=== PATIENT | male | born 1980 | race Caucasian/White ===

== ENCOUNTER 2017-04-04 12:46 | Day surgery (SDC) | payer OTHER ==
[~2017-04-04] VITALS: Ht 185.4 cm; Wt 102.5 kg
[~2017-04-04 12:46] MED LIST: CATAPRES0.1 MG PO; CRESTOR5 MG PO; LIPITOR20 MG PO; PRILOSEC10 MG PO; VITAMIN E400 UNIT PO; ZESTRIL5 MG PO
[2017-04-04 13:15] VITALS: BP 122/82
[2017-04-04 17:30] VITALS: BP 130/80
[2017-04-04 18:35] VITALS: BP 120/70
== END 2017-04-04 19:05 | disposition home or self-care (01) ==
LOC: SDC 12:46
DX: M19.011 Primary osteoarthritis, right shoulder (principal); S43.401A Unspecified sprain of right shoulder joint, initial encounter; X58.XXXA Exposure to other specified factors, initial encounter; M25.811 Other specified joint disorders, right shoulder; I10 Essential (primary) hypertension; E78.00 Pure hypercholesterolemia, unspecified; K21.9 Gastro-esophageal reflux disease without esophagitis; Z87.891 Personal history of nicotine dependence
CPT/HCPCS: J0171; J0330; J0690; J1100; J1170; J2250; J2405; J2795; J3010